=== PATIENT | female | born 1975 | race Hispanic/Latino ===

== ENCOUNTER 2019-09-22 12:26 | Emergency (ER) | payer SELFPAY ==
[2019-09-22 12:37] VITALS: BP 106/72
--- NOTE | 2019-09-22 12:38 | Event Note ---
ED Screening Note Date of service: 09/22/19 Time: 12:37 ED Screening Note: This is a 43 y.o. F. that presents to the ER with painful abscess left proximal inner thigh x 2 days. Current smoker Tetanus UTD This initial assessment/diagnostic orders/clinical plan/treatment(s) is/are subject to change based on patients health status, clinical progression and re- assessment by fellow clinical providers in the ED. Further treatment and workup at subsequent clinical providers discretion. Patient/guardian urged not to elope from the ED as their condition may be serious if not clinically assessed and managed. Initial orders include: ACC for I&D
[2019-09-22] MEDS ORDERED: TYLENOL #3 PO ONE (13:57)
[2019-09-22] MEDS ORDERED: CLEOCIN IM ONE (13:57)
--- NOTE | 2019-09-22 14:00 | Emergency Department Report ---
Abscess Boil HPI - HPI Chief Complaint: Skin/Abscess/Foreign Body Stated Complaint: L THIGH SWOLLEN/POSS SPIDER BITE Time Seen by Provider: 09/22/19 12:36 Duration: 3 Days Location: Lower Extremity Severity: Mild History: Yes Pain, Yes Insect Bite, No Fever, No Purulent Drainage, No Numbness, No Foreign Body, No Previous History HPI: This is a 43-year-old female who presents to ED complaining of left thigh redness and pain for the past 3 days. Patient states she didn't she got bit by something but sure what these. Patient states that the redness and swelling has gotten bigger in the past couple of days. Patient states that there is no drainage to the area. She denies fevers/chills/shortness of breath Home Medications: Previous Rx's Medication Instructions Recorded Last Taken Type Acetaminophen/Codeine [Tylenol 1 tab PO Q6H #8 tab 09/22/19 Unknown Rx /Codeine # 3 tab] Clindamycin [Clindamycin CAP] 300 mg PO Q8H #21 cap 09/22/19 Unknown Rx Ibuprofen [Motrin] 800 mg PO Q8HR #30 tablet 09/22/19 Unknown Rx Allergies/Adverse Reactions: Allergies Allergy/AdvReac Type Severity Reaction Status Date / Time latex Allergy Rash Verified 09/22/19 12:27 ED Review of Systems ROS: Stated complaint: L THIGH SWOLLEN/POSS SPIDER BITE Other details as noted in HPI Comment: All other systems reviewed and negative ED Past Medical Hx - Past Medical History Previous Medical History?: Yes 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 No distress. Alert and acting appropriately. Size: 3 cm Exam: Yes Tenderness, Yes Surrounding Cellulites/Erythema, Yes Normal Neurologic Exam, Yes Normal Circulation, No Fluctuance, No Lymphangitis, No Crepitation, No Heart Murmur ED Course Vital Signs 09/22/19 09/22/19 12:30 12:36 Temperature 98.1 F Pulse Rate 101 H Respiratory 18 Rate Blood Pressure 106/72 [Right] O2 Sat by Pulse 96 Oximetry Critical care attestation.: If time is entered above; I have spent that time in minutes in the direct care of this critically ill patient, excluding procedure time. ED Medical Decision Making - Medical Decision Making 43-year-old female presents with cellulitis of the inner right thigh. ED Disposition Clinical Impression: Cellulitis, Insect bite Disposition: DC- TO HOME OR SELFCARE Is pt being admited?: No Does the pt Need Aspirin: No Condition: Stable Instructions: Cellulitis (ED), Insect Bite or Sting (ED) Additional Instructions: Make sure to follow up with the primary care physician as discussed. Take all your medications as you've been prescribed. If you have any worsening symptoms or develop new symptoms please return to ED immediately. Prescriptions: Clindamycin [Clindamycin CAP] 300 mg PO Q8H #21 cap Ibuprofen [Motrin] 800 mg PO Q8HR #30 tablet Acetaminophen/Codeine [Tylenol /Codeine # 3 tab] 1 tab PO Q6H #8 tab Referrals: [facility] [Outside] - 3-5 Days [facility] [Outside] - 3-5 Days Forms: Accompanied Note, Work/School Release Form(ED) Time of Disposition: 15:25
== END 2019-09-22 15:36 | disposition home or self-care (01) ==
LOC: ED 12:26
DX: S70.362A Insect bite (nonvenomous), left thigh, initial encounter (principal); L03.116 Cellulitis of left lower limb; F17.200 Nicotine dependence, unspecified, uncomplicated; Z91.040 Latex allergy status; W57.XXXA Bitten or stung by nonvenomous insect and other nonvenomous arthropods, initial encounter; Y93.89 Activity, other specified; Y92.89 Other specified places as the place of occurrence of the external cause; Y99.8 Other external cause status
CPT/HCPCS: 96372